=== PATIENT | female | born 1975 | race Caucasian/White ===

== ENCOUNTER 2018-01-15 17:02 | Emergency (ER) | payer OTHER ==
[~2018-01-15] VITALS: Ht 172.7 cm; Wt 113.8 kg
[2018-01-15 18:20] VITALS: BP 121/88
== END 2018-01-15 18:20 | disposition home or self-care (01) ==
LOC: ED 17:02
DX: S81.801A Unspecified open wound, right lower leg, initial encounter (principal); B96.89 Other specified bacterial agents as the cause of diseases classified elsewhere; W26.8XXA Contact with other sharp object(s), not elsewhere classified, initial encounter; Y93.89 Activity, other specified; Y92.89 Other specified places as the place of occurrence of the external cause; Y99.8 Other external cause status; J45.909 Unspecified asthma, uncomplicated; E66.9 Obesity, unspecified; Z88.1 Allergy status to other antibiotic agents; Z88.0 Allergy status to penicillin

== ENCOUNTER 2018-05-31 23:29 | Emergency (ER) | payer OTHER ==
[~2018-05-31] VITALS: Ht 177.8 cm; Wt 108.9 kg
[2018-05-31 23:35] VITALS: Ht 177.8 cm; Wt 108.9 kg
[2018-06-01 02:24] VITALS: BP 111/69
== END 2018-06-01 02:24 | disposition home or self-care (01) ==
LOC: ED 23:29
DX: Z04.1 Encounter for examination and observation following transport accident (principal); Z88.6 Allergy status to analgesic agent; Z88.0 Allergy status to penicillin; J45.909 Unspecified asthma, uncomplicated